=== PATIENT | male | born 1960 | race Caucasian/White ===

== ENCOUNTER 2018-05-23 08:05 | Emergency (ER) | payer BC ==
--- NOTE | 2018-05-23 09:00 | RADIOLOGY REPORT (SQ) ---
EXAM DESCRIPTION: FOOT RIGHT COMPLETE COMPLETED DATE/TIME: 05/23/2018 8:44 am REASON FOR STUDY: fall/pain fell down the steps, twisted foot COMPARISON: None. NUMBER OF VIEWS: Three views. TECHNIQUE: AP, lateral and oblique radiographic images acquired of the right foot. LIMITATIONS: None. FINDINGS: MINERALIZATION: Normal. BONES: Acute nondisplaced nonangulated fracture, distal right 4th metatarsal metaphysis, best shown o n the oblique view. There are sesamoid bones at the 5th metatarsophalangeal joint, the medial sesamoid bone is bipartite. No fracture. Remainder of the bones of the foot are otherwise unremarkable aside from small plantar and dorsal mohit caneal spurs JOINTS: No effusions. SOFT TISSUES: Mild forefoot soft tissue swelling. No foreign body. OTHER: No other significant finding. IMPRESSION: Acute nondisplaced nonangulated fracture, distal right 4th metatarsal metaphysis best sh own on the oblique view. TECHNICAL DOCUMENTATION: JOB ID: [id number] [employer]- All Rights Reserved Reading location - IP/workstation name: [email or web address]
[2018-05-23] MEDS ORDERED: HYDROCODONE/ACETAMINOPHEN 5-325 MG TABLET PO ONE (09:06)
--- NOTE | 2018-05-23 10:08 | ER Document Report ---
ED General - General Chief Complaint: Fall Stated Complaint: FALL/RIGHT FOOT INJURY Time Seen by Provider: 05/23/18 08:54 Primary Care Provider: TRINH HUDDLESTON MD [ACTIVE STAFF] - Follow up in 3-5 days (orthopedic surgery ) Notes: Patient is a 57-year-old male that presents to the emergency department for chief complaint of right foot and ankle pain after fall. Patient states that he tripped on his front porch, and twisted his right ankle and landed on his right side and did hit his head on the cement. He denies loss of consciousness. However he is on Plavix. Denies having a headache, neck pain, blurred vision, nausea or vomiting. He is mainly complaining of right foot pain which he currently rates as a 6 out of 10 describes as a constant ache across his right forefoot. Pain with ambulation and putting weight on that foot. Denies any numbness, tingling or weakness in any of his extremities. No other complaints at this time. He reports being up-to-date with his tetanus vaccination. Past Medical History: CAD, hypertension Past Surgical History: PCI with stenting Social History: Denies tobacco, alcohol or drug use. Family History: Reviewed and noncontributory for presenting illness Allergies: Reviewed, see documented allergy list. REVIEW OF SYSTEMS: Other than noted above, the 12 point review of systems was reviewed with the patient and were negative, all pertinent findings are included in the HPI. PHYSICAL EXAMINATION: Vital signs reviewed, nursing noted reviewed. GENERAL: Well-appearing, well-nourished and in no acute distress. HEAD: Atraumatic, normocephalic. EYES: Eyes appear normal, extraocular movements intact, sclera anicteric, conjunctiva are normal. ENT: nares patent, oropharynx clear without exudates. Moist mucous membranes. NECK: Normal range of motion, supple without lymphadenopathy LUNGS: Breath sounds clear to auscultation bilaterally and equal. No wheezes rales or rhonchi. HEART: Regular rate and rhythm without murmurs ABDOMEN: Soft, nontender, normoactive bowel sounds. No rebound, guarding, or rigidity. No masses appreciated. EXTREMITIES: Tenderness with palpation to the distal aspect of the third through fifth metatarsals of the right foot, mild swelling noted, there is also tenderness over the lateral malleolus of the right ankle, with mild edema, without ecchymosis. No gross deformities appreciated. Cap refill less than 3 seconds in all digits, sensation intact distally, and motor intact distally. The rest of the patient's extremity exam is grossly unremarkable. NEUROLOGICAL: No focal neurological deficits. Moves all extremities spontaneously Motor and sensory grossly intact on exam. PSYCH: Normal mood, normal affect. SKIN: Warm, Dry, normal turgor, no rashes or lesions noted on exposed skin TRAVEL OUTSIDE OF THE [place] IN LAST 30 DAYS: No - Related Data Allergies/Adverse Reactions: Tetanus Vaccines and Toxoid [Tetanus] Allergy (Unknown, Verified 05/23/18 08:07) Horse/Equine Containing Products [Horse/Equine Product Derivatives] Allergy (Verified 05/23/18 08:07) Past Medical History - Social History Smoking Status: Never Smoker Frequency of alcohol use: None Drug Abuse: None Family History: Reviewed & Not Pertinent Patient has suicidal ideation: No Patient has homicidal ideation: No - Past Medical History Cardiac Medical History: Reports: Hx Coronary Artery Disease, Hx Hypercholesterolemia, Hx Hypertension Neurological Medical History: Denies: Hx Seizures Renal/ Medical History: Denies: Hx Peritoneal Dialysis Past Surgical History: Reports: Hx Cardiac Catheterization, Hx Cardiac Surgery - Coronary stents Physical Exam - Vital signs Vitals: Temp Pulse Resp BP Pulse Ox 99.4 F 95 18 135/88 H 98 05/23/18 08:09 05/23/18 08:09 05/23/18 08:09 05/23/18 08:09 05/23/18 08:09 Course - Re-evaluation Re-evalutation: Patient seen and examined vital signs reviewed. Patient was evaluated and treated as appropriate for the patient's presenting symptoms and complaint, with consideration of any critical or life threatening conditions that may be associated with their obtained history and exam as noted above. Patient was treated with p.o. Bronson 5 mg / 325 mg, x-rays obtained of the right foot, demonstrated a fracture of the fourth metatarsal, nondisplaced, no evidence of ankle injury or fracture. Patient placed in a postop shoe, CT of the head obtained given that the patient is on Plavix and did hit his head, however he was asymptomatic this demonstrated The patient was re-evaluated and was still having some pain, therefore given a dose of IM Dilaudid for his pain. CT of the head was negative. Evaluation was most consistent with right fourth metatarsal fracture, closed, related to traumatic injury, no other acute or concerning findings. Patient given a prescription for Bronson advised to follow-up with orthopedic surgery. Plan of care was discussed with the patient at this point, after careful consideration I feel that that patient can be discharged from the emergency department, the patient was educated treatments and reasons to return to the emergency department based on their presumed diagnosis as noted above, they were advised to followup with a primary care physician in 2-3 days. Patient was agreeable to plan of care. *Note is created using voice recognition software and may contain spelling, syntax or grammatical errors. Foot X-Ray 05/23/18 08:09 IMPRESSION: Acute nondisplaced nonangulated fracture, distal right 4th metatarsal metaphysis best shown on the oblique view. Head CT 05/23/18 09:07 IMPRESSION: Normal brain CT without contrast. EVIDENCE OF ACUTE STROKE: NO. - Vital Signs Vital signs: Temp Pulse Resp BP Pulse Ox 97.5 F 74 14 142/89 H 93 05/23/18 11:33 05/23/18 11:33 05/23/18 11:33 05/23/18 11:33 05/23/18 11:33 Procedures - Immobilization Right Foot Pre-Proc Neuro Vasc Exam: Normal Immobilizer type: Post-op shoe Performed by: PCT Post-Proc Neuro Vasc Exam: Normal Discharge - Discharge Clinical Impression: Metatarsal fracture Qualifiers: Encounter type: initial encounter Metatarsal bone: fourth Fracture type: closed Fracture alignment: nondisplaced Laterality: right Qualified Code(s): S92.344A - Nondisplaced fracture of fourth metatarsal bone, right foot, initial encounter for closed fracture Fall Qualifiers: Encounter type: initial encounter Qualified Code(s): W19.XXXA - Unspecified fall, initial encounter Closed head injury Qualifiers: Encounter type: initial encounter Qualified Code(s): S09.90XA - Unspecified injury of head, initial encounter Condition: Stable Disposition: HOME, SELF-CARE Instructions: Foot Fracture ([facility]) Additional Instructions: Please use the crutches and the rigid shoe to help reduce pain, you can apply warm or cool compresses for 20 minutes on and 20 minutes off to help alleviate pain and swelling as well. Only take the prescribed pain medication for breakthrough or worsen pain. Please follow-up with orthopedic surgery for further evaluation. Prescriptions: Hydrocodone/Acetaminophen [Bronson 5-325 mg Tablet] 1 tab PO Q6H PRN #15 tablet PRN Reason: foot pain Referrals: TRINH HUDDLESTON MD [ACTIVE STAFF] - Follow up in 3-5 days (orthopedic surgery )
--- NOTE | 2018-05-23 11:15 | RADIOLOGY REPORT (SQ) ---
EXAM DESCRIPTION: CT HEAD WITHOUT COMPLETED DATE/TIME: 05/23/2018 10:38 am REASON FOR STUDY: FALL, HEAD INJ ON PLAVIX COMPARISON: None. TECHNIQUE: Axial images acquired through the brain without intravenous contrast. Images reviewed wi th bone, brain and subdural windows. Additional sagittal and coronal reconstructions were generated. Images stored on PACS. All CT scanners at this facility use dose modulation, iterative reconstruction, and/or weight based d osing when appropriate to reduce radiation dose to as low as reasonably achievable (ALARA). [facility]: Dose Right [facility]: CareDose [facility]: Dose Right [facility]: Teradose 4D [facility]: Smart [place] RADIATION DOSE: CT Rad equipment meets quality standard of care and radiation dose reduction techniq ues were employed. CTDIvol: 53.2 mGy. DLP: 1044 mGy-cm. mGy. LIMITATIONS: None. FINDINGS: VENTRICLES: Normal size and contour. CEREBRUM: No masses. No hemorrhage. No midline shift. No evidence for acute infarction. Normal gra y/white matter differentiation. No areas of low density in the white matter. CEREBELLUM: No masses. No hemorrhage. No alteration of density. No evidence for acute infarction. EXTRAAXIAL SPACES: No fluid collections. No masses. ORBITS AND GLOBE: No intra- or extraconal masses. Normal contour of globe without masses. CALVARIUM: No fracture. PARANASAL SINUSES: There is opacification of a few of the ethmoid air cells. SOFT TISSUES: No mass or hematoma. OTHER: No other significant finding. IMPRESSION: Normal brain CT without contrast. EVIDENCE OF ACUTE STROKE: NO. COMMENT: Quality ID # [id number]: Final reports with documentation of one or more dose reduction techniques (e.g., Automated exposure control, adjustment of the mA and/or kV according to patient size, use of iterative reconstruction technique) TECHNICAL DOCUMENTATION: JOB ID: [id number] [employer]- All Rights Reserved Reading location - IP/workstation name: [email or web address]
[2018-05-23] MEDS ORDERED: HYDROMORPHONE HCL INJ/PF 2 MG/ML AMPULE IM ONE (11:21)
[2018-05-23 11:34] VITALS: BP 142/89
== END 2018-05-23 11:46 | disposition home or self-care (01) ==
LOC: ER 08:05
DX: S92.344A Nondisplaced fracture of fourth metatarsal bone, right foot, initial encounter for closed fracture (principal); S09.90XA Unspecified injury of head, initial encounter; M79.671 Pain in right foot; M25.571 Pain in right ankle and joints of right foot; W01.0XXA Fall on same level from slipping, tripping and stumbling without subsequent striking against object, initial encounter; Y92.008 Other place in unspecified non-institutional (private) residence as the place of occurrence of the external cause; I25.10 Atherosclerotic heart disease of native coronary artery without angina pectoris; I10 Essential (primary) hypertension
CPT/HCPCS: 99284; 96372; 73630; 70450; J1170